=== PATIENT | female | born 1985 | race Caucasian/White ===

== ENCOUNTER → 2021-04-12 | Outpatient (CLI) | payer OTHER ==
[2021-04-12 13:03] LABS: BASO # 0.1 10^3/uL (0.0-0.2); BASO % 0.4 % (0.0-1.0); EOS # 0.3 10^3/uL (0.0-0.5); EOS % 1.9 % (0.0-3.0); HEMATOCRIT 32.7 % (36.0-47.0); HEMOGLOBIN 11.1 g/dl (12.0-15.5); LYMPH # 3.2 10^3/uL (1.5-5.0); LYMPH % 23.8 % (24.0-44.0); MEAN CORPUSCULAR HEMOGLOBIN 31.1 pg (27.0-33.0); MEAN CORPUSCULAR HGB CONC 33.9 g/dl (32.0-36.5); MEAN CORPUSCULAR VOLUME 91.6 fl (80.0-96.0); MONO # 0.8 10^3/uL (0.0-0.8); MONO % 6.1 % (2.0-8.0); NEUTROPHILS % 67.4 % (36.0-66.0); PLATELET COUNT, AUTOMATED 263 10^3/uL (150-450); RED BLOOD COUNT 3.57 10^6/uL (4.00-5.40); WHITE BLOOD COUNT 13.4 10^3/uL (4.0-10.0)
--- NOTE | 2021-04-12 13:12 | REP ---
INDICATION: PREG, DECELERATION OF HEART RATE PER NST-LABS FIRST. COMPARISON: None. TECHNIQUE: Transabdominal scanning FINDINGS: Multiple ultrasonographic images of the gravid uterus shows a single living intrauterine gestation in the cephalic presentation. Doppler interrogation of the heart shows a heart rate of 150 beats per minute. The subjective amniotic fluid volume is upper limits of normal. The calculated amniotic fluid index is 19.3 with an expected range 8.2 to 24.6. The placenta is anterior not low lying. The cervix measures 3.9 cm in length and is closed. Doppler interrogation of the umbilical artery shows an A\B ratio of 2.6. This is within the normal range. biophysical profile score is 2 for breathing, 2 for movement, 2 for tone, and 2 for amniotic fluid volume giving a sum total of 8/8. IMPRESSION: Limited OB ultrasound as described above. <Electronically signed by Karri Ramachandran > 04/12/21 [id number]
[2021-04-12 13:28] LABS: ALBUMIN 2.5 GM/DL (3.2-5.2); ALT/SGPT 15 U/L (12-78); BILIRUBIN,TOTAL 0.3 MG/DL (0.2-1.0); BLOOD UREA NITROGEN 10 MG/DL (7-18); CALCIUM LEVEL 10.7 MG/DL (8.5-10.1); CARBON DIOXIDE LEVEL 25 MEQ/L (21-32); CHLORIDE LEVEL 107 MEQ/L (98-107); GLOMERULAR FILTRATION RATE > 60.0 (>60); GLUCOSE, FASTING 78 MG/DL (70-100); LDH LACTATE DEHYDROGENASE 97 U/L (84-246); POTASSIUM SERUM 3.6 MEQ/L (3.5-5.1); SODIUM LEVEL 138 MEQ/L (136-145); TOTAL PROTEIN 6.4 GM/DL (6.4-8.2); URIC ACID 5.3 MG/DL (2.6-6.0)
[2021-04-12 13:33] LABS: CREATININE,RANDOM URINE 50.9 MG/DL
== END ==
LOC: M RAD 11:32
PROVIDERS: ATTEND Obstetrics & Gynecology
DX: O13.9 Gestational [pregnancy-induced] hypertension without significant proteinuria, unspecified trimester (principal); Z3A.00 Weeks of gestation of pregnancy not specified

== ENCOUNTER 2021-05-08 05:11 | Inpatient (IN) | payer OTHER ==
--- NOTE | 2021-04-30 09:49 | HPE ---
HISTORY AND PHYSICAL DATE OF ADMISSION: 05/08/2021 HISTORY OF PRESENT ILLNESS: This lady is a 35-year-old 4 para 2, LMP was August 22, 2020, EDC by early ultrasound at 8 weeks, 3 days was May 29, 2021. She is booked for an elective repeat section and bilateral tubal ligation by Filshie clip on May 08, 2021. Risk factors is she has gestational hypertension, has high-grade disease on Pap smear, she is going to require colposcopy in her third trimester, she advanced maternal age at 35, gestational anemia, has asthma on Advair and Albuterol, two previous sections. She has mitral valve prolapse, a smoker, anxiety and depression. PHYSICAL EXAMINATION: On examination today, initial blood pressure on admission was 159/87, retaking it 15 minutes later was 147/85 which is in keeping with her other blood pressures through her visits. Her symphysis fundus height is 34, has a transverse lie, heart rate is in the 160s and an active fetus was noted. The rest of the examination is unremarkable. Normocephalic, atraumatic. Neck: Full range of motion. Pupils equal and reactive to light. Distal pulses are symmetric. No evidence of DVT, PE or superficial phlebitis. Chest is clear bilaterally to bases. No wheezes or rhonchi. No CVA tenderness. Abdomen is soft, four quadrant bowel sounds are noted. The incisional area is not tender. No rashes, lesions or pruritus. No arthralgias or myalgias, no complaint of joint pain. No complaint of cough, wheeze, shortness of breath or dyspnea on exertion. No nausea, vomiting, diarrhea or constipation. No urgency or frequency. 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 No evidence of STDs in the past. Her 28 week glucose test 1 hour is 120, she is A positive, HIV negative, hepatitis negative, RPR is nonreactive, rubella immune. Gonorrhea and chlamydia are negative. She had a maternity 21 screening which was negative. Recently HIV was negative and COVID was also negative. She received one dose of COVID on 03/11/2021 and is planned for the second dose post-delivery. We discussed the risks and benefits of section including hemorrhage, infection, perforation, , re-operation, the remote of possibility of blood transfusion, the remote possibility of life-threatening bleeding to remove the uterus, the remote possibility of the admitted to the NICU for observation. We also discussed the tubal ligation for satisfied parity, the risk of failure is less than 1%, use of Filshie clip and the fact that the Filshie clip can sometimes be dislodged but being an inanimate object would not cause any distress or harm. Expressed an understanding of the aforementioned. We had a 30 minute discussion, education, signed the consent form, all questions were answered. We await Anesthesiology and Neonatology has been informed.
[2021-05-08] VITALS (8 sets, daily range): BP systolic 117–159; BP diastolic 67–95
[~2021-05-08] VITALS: Ht 165.1 cm; Wt 83.7 kg
[~2021-05-08 05:11] MED LIST: ALBU8.5H INH; FERR325T3 PO; PREN1TAB18 PO
--- OUTSIDE RECORDS SUMMARY | 2021-05-08 05:16 | CCD ---
Author Author [facility] Organization [facility] Address Unknown Phone Unavailable Care Team Providers Care Location Manager Name Role Phone AMILCAR SMITH MD Unavailable Unavailable LUISAMILCAR MD Unavailable Unavailable LUISAMILCAR MD Unavailable Unavailable LUISAMILCAR MD Unavailable Unavailable LUISAMILCAR MD Unavailable Unavailable LUISAMILCAR MD Unavailable Unavailable LUISAMILCAR MD Unavailable Unavailable LUISAMILCAR MD Unavailable Unavailable LUISAMILCAR MD Unavailable Unavailable LUISAMILCAR MD Unavailable Unavailable LUISAMILCAR MD Unavailable Unavailable LUISAMILCAR MD Unavailable Unavailable LUISAMILCAR MD Unavailable Unavailable LUISAMILCAR MD Unavailable Unavailable LUISAMILCAR MD Unavailable Unavailable LUISAMILCAR MD Unavailable Unavailable LUISAMILCAR MD Unavailable Unavailable LUISAMILCAR MD Unavailable Unavailable LUISAMILCAR MD Unavailable Unavailable LUISAMILCAR MD Unavailable Unavailable LUISAMILCAR MD Unavailable Unavailable LUISAMILCAR MD Unavailable Unavailable LUISAMILCAR MD Unavailable Unavailable LUISAMILCAR MD Unavailable Unavailable LUISAMILCAR MD Unavailable Unavailable LUISAMILCAR MD Unavailable Unavailable LUISAMILCAR MD Unavailable Unavailable LUISAMILCAR MD Unavailable Unavailable LUISAMILCAR MD Unavailable Unavailable LUISAMILCAR MD Unavailable Unavailable LUISAMILCAR MD Unavailable Unavailable LUISAMILCAR MD Unavailable Unavailable LUISAMILCAR MD Unavailable Unavailable LUISAMILCAR MD Unavailable Unavailable LUISAMILCAR MD Unavailable Unavailable LUISAMILCAR MD Unavailable Unavailable LUISAMILCAR MD Unavailable Unavailable LUISAMILCAR MD Unavailable Unavailable AMILCAR SMITH MD Unavailable Unavailable LUISAMILCAR MD Unavailable Unavailable LUISAMILCAR MD Unavailable Unavailable LUISAMILCAR MD Unavailable Unavailable LUISAMILCAR MD Unavailable Unavailable LUISAMILCAR MD Unavailable Unavailable LUISAMILCAR MD Unavailable Unavailable LUISAMILCAR MD Unavailable Unavailable LUISAMILCAR MD Unavailable Unavailable LUSIAMILCAR MD Unavailable Unavailable LUISAMILCAR MD Unavailable Unavailable LUISAMILCAR MD Unavailable Unavailable LUISAMILCAR MD Unavailable Unavailable LUISAMILCAR MD Unavailable Unavailable LUIS, FITZGERALD MD Unavailable Unavailable AMILCAR SMITH MD Unavailable Unavailable AMILCAR SMITH MD Unavailable Unavailable Re-disclosure Warning The records that you are about to access may contain information from federally-assisted alcohol or drug abuse programs. If such information is present, then the following federally mandated warning applies: This information has been disclosed to you from records protected by federal confidentiality rules (42 CFR part 2). The federal rules prohibit you from making any further disclosure of this information unless further disclosure is expressly permitted by the written consent of the person to whom it pertains or as otherwise permitted by 42 CFR part 2. A general authorization for the release of medical or other information is NOT sufficient for this purpose. The Federal rules restrict any use of the information to criminally investigate or prosecute any alcohol or drug abuse patient.The records that you are about to access may contain highly sensitive health information, the redisclosure of which is protected by Article 27-F of the [facility] Public Health law. If you continue you may have access to information: Regarding HIV / AIDS; Provided by facilities licensed or operated by the [facility] Office of Mental Health; or Provided by the [facility] Office for People With Developmental Disabilities. If such information is present, then the following [facility] mandated warning applies: This information has been disclosed to you from confidential records which are protected by state law. State law prohibits you from making any further disclosure of this information without the specific written consent of the person to whom it pertains, or as otherwise permitted by law. Any unauthorized further disclosure in violation of state law may result in a fine or penitentiary sentence or both. A general authorization for the release of medical or other information is NOT sufficient authorization for further disc losure. Encounters Encounter Providers Location Date Indications Data Source(s ) Outpatient Attender: AMILCAR SMITH MD [email or web address] 07:36:17 AM EDT - 03/13/2021 07:36:41 AM EDT [facility] Outpatient Attender: AMILCAR SMITH MD 03/12/2021 11:00:00 AM [facility] Medications No Information Insurance Providers Payer name Policy type / Coverage type Policy ID Covered republican ID Covered republican's relationship to massey Policy Massey Plan Information [facility] [id number] [facility] [id number] [facility] [id number] [facility] [id number] [facility] [id number] [facility] [id number] Problems, Conditions, and Diagnoses Code Display Name Description Problem Type Effective Dates Data Source(s) I05.9 Rheumatic mitral valve disease, unspecif ied RHEUMATIC MITRAL VALVE DISEASE, UNSPECIFIED Diagnosis 03/12/2021 11:00:00 AM [facility] Z72.0 Tobacco use TOBACCO USE Diagnosis 03/12/2021 11:00:00 AM [facility] J45.909 Unspecified asthma, uncomplicated UNSPECIFIED THMA, UNCOMPLICATED Diagnosis 03/12/2021 11:00:00 AM [facility] Z34.90 Encounter for supervision of normal , unspecified, unspecified trimester ENCNTR FOR SUPRVSN OF NORMAL , UNSP, UNSP Diagnosis 03/12/2021 11:00:00 AM [facility] R03.0 Elevated blood-pressure reading, without diagnosis of hypertension ELEVATED BLOOD-PRESSURE READING, W/O DIAGNOSIS OF HTN Diagnosis 03/12/2021 11:00:00 [facility] Surgeries/Procedures No Information Results No Information Social History No Information
[2021-05-08] MEDS ORDERED: ACET325C5 PO (05:31)
[2021-05-08] MEDS ORDERED: TUMS500C PO (05:31)
[2021-05-08] MEDS ORDERED: HOME MED LIST COMPLETE! XX SCH (05:35)
[2021-05-08 05:51] LABS: HEMATOCRIT 32.8 % (36.0-47.0); HEMOGLOBIN 11.2 g/dl (12.0-15.5); MEAN CORPUSCULAR HGB CONC 34.1 g/dl (32.0-36.5); MEAN CORPUSCULAR VOLUME 90.9 fl (80.0-96.0); PLATELET COUNT, AUTOMATED 290 10^3/uL (150-450); RED BLOOD COUNT 3.61 10^6/uL (4.00-5.40); WHITE BLOOD COUNT 12.8 10^3/uL (4.0-10.0)
[2021-05-08] MEDS ORDERED: ceFAZolin SOD 2 GM in IV 1 EA IV ONE ×2 (06:25→07:40)
[2021-05-08] MEDS ORDERED: ACETAMINOPHEN 650 MG SUPP PR SCH (06:25)
[2021-05-08] MEDS ORDERED: BICITRA 30ML SOLN UDC PO ONE ×2 (06:25→07:40)
[2021-05-08] MEDS ORDERED: BUPIVACAINE HCL 0.25% 10ML VIAL SC SCH ×2 (06:45→07:40)
[2021-05-08] MEDS ORDERED: ONDANSETRON 4MG/2ML VIAL As Ordered ONE (07:23)
[2021-05-08] MEDS ORDERED: OXYTOCIN INJ 10 UNITS/ML VIAL (J2590) As Ordered ONE ×2 (07:23→09:25)
[2021-05-08] MEDS ORDERED: KETOROLAC 60MG 2ML VIAL As Ordered ONE (07:23)
[2021-05-08] MEDS ORDERED: dexameTHASONE 4 MG/ML 1ML VIAL (J1100 PER 1MG) As Ordered ONE ×2 (07:23→09:25)
[2021-05-08] MEDS ORDERED: fentaNYL 100 MCG/2 ML INJECTION (J3010) As Ordered ONE (07:25)
[2021-05-08] MEDS ORDERED: MORPHINE PRES-FREE INJ 10 MG/10 ML VIAL (J2274) As Ordered ONE (07:25)
[2021-05-08] MEDS ORDERED: AZITHROMYCIN INJ 500 MG, VIAL MATE ADAPTER 1 EACH in NS 250 ML IV ONE (07:40)
[2021-05-08] MEDS ORDERED: OXYTOCIN INJ 10 UNITS/ML VIAL (J2590) IV PRN (07:40)
[2021-05-08] MEDS ORDERED: OXYTOCIN DRIP 30 UNITS in IV 1 EA IV PRN ×4 (07:40)
[2021-05-08] MEDS ORDERED: METHYLERGONOVINE MALEATE 0.2 MG/ML VIAL (J2210) IM PRN ×2 (07:40→10:15)
[2021-05-08] MEDS ORDERED: ACETAMINOPHEN 650 MG SUPP PR ONE (07:45)
[2021-05-08] MEDS ORDERED: diphenhydrAMINE 50MG/ML VIAL (J1200) IV PRN ×2 (08:10)
[2021-05-08] MEDS ORDERED: ONDANSETRON 4MG/2ML VIAL IV PRN ×3 (08:10→10:05)
[2021-05-08] MEDS ORDERED: NALBUPHINE HCL 10 MG/ML AMP (J2300) IV PRN ×2 (08:10)
[2021-05-08] MEDS ORDERED: NALOXONE INJ 0.4MG/1ML VIAL (J2310 PER 1MG) IV PRN ×4 (08:10)
[2021-05-08] MEDS ORDERED: METOCLOPRAMIDE INJ 10MG/2ML VIAL (J2765 PER 1) IV PRN ×2 (08:10)
[2021-05-08] MEDS ORDERED: PHENYLephrine 500MCG 5ML (100MCG/ML) SYRINGE As Ordered ONE (08:25)
[2021-05-08 08:59] LABS: CORD GAS ABE V -5.3; CORD GAS HCO3 V 22.9 MEQ/L; CORD GAS O2 SAT V 27.3 %; CORD GAS PCO2 V 55.3 mmHg; CORD GAS PH V 7.235 UNITS; CORD GAS PO2 V 14.8 mmHg; CORD GAS SBC V 18.6 MEQ/L; CORD GAS TCO2 V 24.6 MEQ/L
[2021-05-08] MEDS: PRENATAL VITAMINS CHEWABLE TABLET PO SCH (09:00)
[2021-05-08 09:01] LABS: CORD GAS ABE A -7.7; CORD GAS HCO3 A 20.2 MEQ/L; CORD GAS O2 SAT A 18.1 %; CORD GAS PH A 7.224 UNITS; CORD GAS SBC A 16.6 MEQ/L; CORD GAS TCO2 A 21.7 MEQ/L
[2021-05-08] MEDS ORDERED: diphenhydrAMINE 50MG/ML VIAL (J1200) As Ordered ONE (09:15)
[2021-05-08] MEDS ORDERED: MEPERIDINE INJ 25 MG/ML VIAL (J2175) IV PRN (10:05)
[2021-05-08] MEDS ORDERED: fentaNYL 100 MCG/2 ML INJECTION (J3010) IV PRN (10:05)
[2021-05-08] MEDS ORDERED: PERCOCET 5MG/325MG TAB PO PRN ×3 (10:05→10:15)
[2021-05-08] MEDS ORDERED: MOM 30ML SUSPENSION UDC PO PRN (10:15)
[2021-05-08] MEDS ORDERED: ANUSOL HC CREAM 30GM TOP PRN (10:15)
[2021-05-08] MEDS ORDERED: DOCUSATE SODIUM 100MG CAPSULE PO PRN (10:15)
[2021-05-08] MEDS ORDERED: RHOGAM 300 MCG (1500 IU) INJ (J2790) IM SCH (10:15)
[2021-05-08] MEDS ORDERED: OXYTOCIN DRIP 30 UNITS in IV 1 EA IV ONE (10:15)
[2021-05-08] MEDS ORDERED: MEASLES,MUMPS,RUBELLA VACCINE INJ (MMR-II) (90707) SC SCH (10:15)
[2021-05-08] MEDS ORDERED: SIMETHICONE 80MG CHEW TAB PO PRN (10:15)
[2021-05-08] MEDS ORDERED: ACETAMINOPHEN TAB 650MG DOSE (2X325MG) PO PRN (10:15)
[2021-05-08] MEDS ORDERED: ACETAMINOPHEN 500 MG TAB PO PRN (10:15)
[2021-05-08] MEDS: LR 1,000 ML IV SCH ×2 (10:15→17:40)
[2021-05-08] MEDS ORDERED: ALBUTEROL 90 MCG/ACT 8GM HFA INHALER INH PRN (10:20)
[2021-05-08] MEDS ORDERED: OXYTOCIN 30 UNITS IN 0.9% NaCl 500ML IV BAG (J2590) As Ordered ONE (10:51)
--- NOTE | 2021-05-08 11:31 | RO ---
OPERATIVE NOTE DATE OF OPERATION: 05/08/2021 PREOPERATIVE DIAGNOSIS: Repeat section. POSTOPERATIVE DIAGNOSIS: Repeat section. PROCEDURE: SURGEON: Jin Junior MD WAGE AND HOUR INVESTIGATOR: Dr. Werner for retraction, extraction and visualization without which the procedure could not be completed. ANESTHESIA: Spinal plus local anesthetic for intraperitoneal procedures. ESTIMATED BLOOD LOSS: 300 mL. RISK FACTORS: She has high grade disease on Pap smear requiring colposcopy. She has gestational anemia, mitral valve prolapse, she is a smoker, chronic hypertension, advance maternal age, depression, anxiety, polyhydramnios and transverse lie. DESCRIPTION OF PROCEDURE: After adequate anesthesia and adequate time out, prepped and draped in supine position. Wade catheter in the bladder draining clear urine. Acetaminophen suppository 1300 mg per rectum, appropriate antibiotics preoperatively, sequentials in place. A low transverse incision was made through the two previous transverse incisions. These were quite low, almost onto the symphysis pubis. When we established anatomy which was very distorted from her two previous sections, on opening the peritoneum we noticed that there was a large bulge on the left side extending into the broad ligament and we established that was a portion of the bladder that was from previous section and the uterus was deviated off to the right. We were able to actually digitally feel the Wade bulb in that area. The uterus was dextroverted and we needed to right it up in order to be able to put the Mobius in. Once the Mobius was in we used a wet sponge to stabilize the uterus in the mid position. The bladder appeared to be low down and a low transverse incision was made into the uterus. An ARM draining 1100 mL of amniotic fluid and presenting part coming down this baby was originally in transverse lie with two feet and one hand and we did manual extraction with the two feet pushing the hand up, the other arm was like a flying fetus with the arm behind the head. We deflexed the head, we pulled the hand over the chest and then with both hands and feet we rotated the baby off to the left and extracted livebirth female weighing 5 pounds 11 ounces, 2570 gm, Apgars 8 and 9 at one and five minutes respectively. Arterial pH 7.22, base excess -7.7, venous pH 7.23, base excess -5.3. The placenta was manually removed. Three vessels in the cord. Membranes and tissues intact, was extremely calcified, this lady is a smoker and chronic hypertension. Sweeping the uterus it was clear. We then identified the edges. We closed both layers, the second layer was imbricated. Again evaluating the anatomy the bladder was still present, urine was clear for 200 mL of clear urine. We then removed the Mobius; we removed the vag pack from the left side of the abdomen. We closed the abdomen with running stitch for the peritoneum, two interrupted layers for the fascia, subcutaneous for the fat and subcuticular for the skin. Marcaine 0.25% 10 mL to the skin area and Mepore dressing was placed. Uterus remained well contracted down on Pitocin. The patient and baby were taken to the recovery in good condition. cc: Gisella Quach OB
[2021-05-08] MEDS: KETOROLAC 30 MG/ML 1ML VIAL IV SCH ×2 (14:00→20:45)
[2021-05-09] VITALS (8 sets, daily range): BP systolic 120–143; BP diastolic 66–86
[2021-05-09] MEDS: KETOROLAC 30 MG/ML 1ML VIAL IV SCH (02:18)
[2021-05-09] MEDS: LR 1,000 ML IV SCH ×3 (02:19→18:15)
[2021-05-09 06:43] LABS: HEMATOCRIT 24.8 % (36.0-47.0); MEAN CORPUSCULAR HEMOGLOBIN 30.8 pg (27.0-33.0); MEAN CORPUSCULAR HGB CONC 33.1 g/dl (32.0-36.5); MEAN CORPUSCULAR VOLUME 93.2 fl (80.0-96.0); PLATELET COUNT, AUTOMATED 209 10^3/uL (150-450); RED BLOOD COUNT 2.66 10^6/uL (4.00-5.40); WHITE BLOOD COUNT 11.5 10^3/uL (4.0-10.0)
[2021-05-09 06:50] LABS: HEMOGLOBIN 8.2 g/dl (12.0-15.5)
[2021-05-09] MEDS: PRENATAL VITAMINS CHEWABLE TABLET PO SCH (07:30)
--- NOTE | 2021-05-09 08:23 | IPN ---
PROGRESS NOTE DATE: 05/09/2021 SUBJECTIVE: This lady is a 36-year-old 4, now para 3 admitted for repeat section at 37 weeks of gestation. She had a live female infant, 5 pounds, 11 ounces, 2570 gm. Apgars of 8 and 9 at one and five minutes respectively. Arterial pH 7.22, base excess -7.7, venous pH 7.23, base excess -5.3. Her risk of complications as she has HSIL on Pap smear requires a culpo. She had polyhydramnios of 1100 mL, gestational anemia, mitral valve prolapse, a smoker, advanced maternal age, chronic hypertension, transverse lie, and history of depression. On her first day we discussed phlebitis, cystitis, mastitis, endometritis, cellulitis, diet, exercise, pain management, perineal, breast and wound care. OBJECTIVE: She is normocephalic, atraumatic. Neck full range of motions. Pupils equal and reactive to light. Distal pulses symmetric. No evidence of DVT, PE or superficial phlebitis. Chest is clear bilaterally to bases. No wheezes or rhonchi. No CVA tenderness. Abdomen is soft. Four quadrant bowel sounds are noted. Uterus 2 below. Lochia is moderate. Incision is dry. Urine output in the Wade is adequate. Her blood pressure is 134/83, respirations 18, pulse 69, temperature 97.8. Her admitting hemoglobin was 11.2, hematocrit 32.8, and platelets are 290. Her day one hemoglobin is pending. She is breast feeding, doing well, mobilizing, passing gas. PLAN: Plans are for discharge tomorrow, two week incision check [facility]. Six week check [facility]. control will be discussed at the time of her checkup. All questions were answered. Twenty minute discussion.
[2021-05-09] MEDS: ACETAMINOPHEN 500 MG TAB PO PRN ×2 (09:48→16:40)
[2021-05-09] MEDS: IBUPROFEN 600MG TAB PO PRN ×2 (11:35→18:13)
[2021-05-10] MEDS: IBUPROFEN 600MG TAB PO PRN ×2 (00:10→09:40)
[2021-05-10 02:18] VITALS: BP 143/82
[2021-05-10] MEDS: ACETAMINOPHEN 500 MG TAB PO PRN (03:57)
[2021-05-10 05:57] VITALS: BP_SYST 121; BP_SYST 128; BP_DIAS 73; BP_DIAS 74
[2021-05-10] MEDS ORDERED: PERCOCET PO (06:54)
[2021-05-10] MEDS ORDERED: COLA100C5 PO (06:54)
[2021-05-10] MEDS ORDERED: IBUP-1022 PO (06:54)
--- NOTE | 2021-05-10 06:59 | DS.PDOC ---
Discharge Summary General Date of Admission May 08, 2021 at 05:11 Date of Discharge May 10, 2021 Discharge Summary HOSPITAL COURSE: Ms. Hernandez is a 36 yo female who underwent a scheduled RLTCS on 08May2021 due to a history of two prior c sections. Her surgery was uncomplicated. Her post operative recovery course was also uncomplicated. On her day of discharge she met all appropriate discharge criteria. She was am bulating, voiding on her own, tolerating a regular diet, passing gas, and her pain was well controlled with PO pain medication. DISCHARGE MEDICATIONS: Please see below. ALLERGIES: Please see below. PHYSICAL EXAMINATION ON DISCHARGE: VITAL SIGNS: Please see below. GENERAL: AAOX3, sitting up in bed, NAD ABDOMINAL EXAMINATION: Soft, non distended. Fundus firm at U-2. No fundal tenderness. Incision covered with dermabond and well appearing. Appropriate tenderness to palpation. No rebound tenderness, guarding, or peritoneal signs. EXTREMITIES: No edema PSYCHIATRIC EXAMINATION: Affect appropriate LABORATORY DATA: Please see below. ACTIVITY: Pelvic rest. No lifting >10 pounds for 6 weeks. DIET: Regular DISCHARGE PLAN: Discharge home DISPOSITION: DC home on 10May2021. DISCHARGE INSTRUCTIONS: Postoperatively, you should expect significant abdominal soreness. We will pro vide oral pain medications, typically an anti-inflammatory (motrin) and an oral narcotic (percocet). It is recommended to take the anti-inflammatory medication three times daily, using the narcotic medication as needed in addition. Sometimes, narcotic medications can cause constipation, and we recommend using a stool softener (colace), drinking plenty of water, increasing the fiber in your diet, and drinking prune juice if constipation becomes a significant issue. Dressings: Your abdominal incision is closed with absorbable stitches and dressed with an optifoam dressing. Remove the dressing in 3-4 days. You may shower on the day following surgery. It is normal to have some pain at the incisions that is sharp. Signs of infection at the incision include pain, redness, swelling and drainage of pus from the incision. Precautions: Please contact the [facility] during business hours, or report to the Emergency Room after hours for any of the following symptoms: * Fever (temperature > 101F) * Significant pain not controlled with oral pain medications * Significant nausea and vomiting with inability to tolerate any food or medication * Significant redness of the incisions or drainage from the incisions Return to normal: You should be able to resume normal activities and exercise within 8 weeks. You may notice more soreness with abdominal exercises, and this is to be expected. Avoid heavy lifting greater than 10 pounds until 6 weeks after surgery. Nothing in the vagina (no tampons, intercourse, or douching) for 6-8wks. You may resume sexual activity 6-8 weeks after surgery when cleared by your surgeon. ITEMS TO FOLLOWUP ON ON OUTPATIENT: 1. appointment in 6 weeks DISCHARGE CONDITION: Stable. TIME SPENT ON DISCHARGE: Greater than 20 minutes. Flower Danielson DO Vital Signs/I&Os Vital Signs Date Time Temp Pulse Resp B/P (MAP) Pulse Ox O2 Delivery O2 Flow Rate FiO2 05/10/21 05:57 97.6 77 17 128/74 (92) 05/09/21 21:58 99 Room Air I&O- Last 24 Hours up to 6 AM 05/10/21 05:59 Output Total 650 ml Balance -650 ml Discharge Medications Scheduled Albuterol Sulfate (Albuterol Sulfate Hfa) 8.5 Gm Hfa.aer.ad, 2 PUFFS INH PRN, (Reported) Calcium Carbonate (Tums) 200 Mg Tab.chew, 2 TAB PO QID for cough and congestion, (Reported) Pnv No.95/Ferrous Fum/Folic AC ( Vitamin Tablet) 1 Each Tablet, 1 TAB PO DAILY, (Reported) Scheduled PRN Docusate Sodium (Colace) 100 Mg Capsule, 100 MG PO QHSP PRN for CONSTIPATION Ibuprofen (Ibuprofen) 600 Mg Tablet, 600 MG PO Q6HP PRN for PAIN LEVEL 1-4 Oxycodone/Acetaminophen (Oxycodone-Acetaminophen 5-325) 1 Each Tablet, 1 TAB PO Q4H PRN for MODERATE PAIN (PS 5-7) Miscellaneous Medications Acetaminophen (Tylenol) 325 Mg Capsule, 650 MG PO, (Reported) Allergies Coded Allergies: No Known Allergies (Unverified , 05/02/21) FLOWER DANIELSON DO May 10, 2021 06:58
[2021-05-10] MEDS: PRENATAL VITAMINS CHEWABLE TABLET PO SCH (09:24)
== END 2021-05-10 11:35 | disposition home or self-care (01) | DRG 773 ==
LOC: M LDI 05:11 → M OBS 11:54
PROVIDERS: ADMIT Obstetrics & Gynecology; ATTEND Obstetrics & Gynecology
PROC: 10D00Z1 Extraction of Products of Conception, Low, Open Approach (ICD-10-PCS; principal; 2021-05-08 07:30)
DX: O34.211 Maternal care for low transverse scar from previous cesarean delivery (principal); O13.4 Gestational [pregnancy-induced] hypertension without significant proteinuria, complicating childbirth; O99.02 Anemia complicating childbirth; D64.9 Anemia, unspecified; O99.52 Diseases of the respiratory system complicating childbirth; J45.909 Unspecified asthma, uncomplicated; O99.334 Smoking (tobacco) complicating childbirth; F17.200 Nicotine dependence, unspecified, uncomplicated; O99.344 Other mental disorders complicating childbirth; F32.A Depression, unspecified; F41.9 Anxiety disorder, unspecified; O32.2XX0 Maternal care for transverse and oblique lie, not applicable or unspecified; O40.3XX0 Polyhydramnios, third trimester, not applicable or unspecified; Z37.0 Single live birth; Z3A.37 37 weeks gestation of pregnancy